=== PATIENT | female | born 1980 | race Caucasian/White ===

== ENCOUNTER → 2019-05-12 | Day surgery (SDC) | payer BC, OTHER ==
[2015-11-04 12:00] VITALS: Ht 160 cm; Wt 51.7 kg
[~2019-05-12] VITALS: Ht 160 cm; Wt 51.7 kg
[~2019-05-12] MED LIST: IBU800 PO; Ibuprofen PO; KET10 PO; LIDOCAINE/SOD BICARB 8.4% SYR ID ONE; LOR5/325 PO; NORMOSOL R SOLN(*) 1000 ML BAG 1,000 ML IV PRN; PNV1TABL92 PO; PROPOFOL EMUL(*) 10MG/ML 20 ML 20 ML ONE; SPIR25TA80 PO; SPIR50TA33 PO
[2019-05-12 09:19] VITALS: BP 94/59
[2019-05-12 11:14] VITALS: BP 95/63
--- NOTE | 2019-05-12 11:22 | Short(Outpt) Discharge Summary ---
Discharge Summary Reason for Hosp/Final Diag: (1) Family history of malignant neoplasm of colon in first degree relative diagnosed when younger than 60 years of age Hospital Course & Plan: pt presented for colonoscopy. she tolerated the procedure well and will be discharged home when criteria met. Discharge Instructions Home Meds Reported Medications Spironolactone (SPIRONOLACTONE) 50 Mg Tablet, 50-75 MG PO DAILY, #1 TAKES FOR PCOS 04/12/19 Discontinued Reported Medications Spironolactone (SPIRONOLACTONE) 25 Mg Tablet, 25 MG PO, TAB 04/12/19 Diet: Regular Activity: As Tolerated Special Instructions: we will call you in 10 days with biposy results. DEWAYNE GRAJEDA May 12, 2019 11:22
--- NOTE | 2019-05-12 11:37 | NUR ---
1114 pt arrived to [facility] via cart, sbar form thomas olivares rn adn dr. sommer. vss, pt resting 1120 PC TO TO UPDATE, LEFT VM 1135 CHECKED ON PT, AWAKE, DECLINES FOOD/DRINK AT THIS TIME, GIVEN PHONE TO TRY HER AGAIN, MOVED TO ROOM AIR, SATTING WELL, BRADYCARDIC
--- NOTE | 2019-05-12 11:45 | NUR ---
ZACHERY ISSA RN. PT. ON PHONE WITH . STATES THAT SHE WOULD LIKE TO TRY SITTING AND STANDING. DENIES DIZZINESS.
[2019-05-12 11:49] VITALS: BP 101/63
[2019-05-12 11:51] VITALS: BP 99/69
[2019-05-12 11:52] VITALS: BP 86/67
--- NOTE | 2019-05-12 11:58 | NUR ---
ORTHOSTATICS COMPLETE. PT. DENIES SYMPTOMS. LOW BP TO START. ENCOURAGED TO DRINK LOTS OF WATER TODAY. GIVEN GLASS OF WATER.
--- NOTE | 2019-05-12 12:00 | NUR ---
PT. ABLE TO DRESS ON OWN. ABLE TO AMBULATE AROUND ROOM WITHOUT ISSUES. DENIES DIZZINESS. WILL DISCHARGE.
--- NOTE | 2019-05-12 12:02 | NUR ---
DISCHARGE INSTRUCTIONS REVIEWED WITH .
== END ==
LOC: OR 01:06
PROVIDERS: ATTEND Surgery
DX: Z12.11 Encounter for screening for malignant neoplasm of colon (principal); Z80.0 Family history of malignant neoplasm of digestive organs; K58.9 Irritable bowel syndrome, unspecified; R19.7 Diarrhea, unspecified
CPT/HCPCS: 00811; 45380; 88305; J2704